=== PATIENT | male | born 1980 | race Caucasian/White ===

== ENCOUNTER 2018-07-07 19:25 | Emergency (ER) | payer MEDICAID ==
[~2018-07-07] VITALS: Ht 172.7 cm; Wt 125.0 kg
[2018-07-07] MEDS ORDERED: METF-960 PO (19:49)
[2018-07-07] MEDS: LIDOCAINE HCL 2%/EPI 1:200,000/PF 20 ML VIAL INJ ONE (21:07)
[2018-07-07] MEDS: INSULIN REGULAR, HUMAN 100 UNITS/ML IVP ONE (21:12)
[2018-07-07 21:23] LABS: GLUCOSE,POINT OF CARE 359 MG/DL (70-110)
[2018-07-07] MEDS: SODIUM CHLORIDE 0.9% 1,000 ML IV ONE (21:28)
[2018-07-07] MEDS: SULFAMETHOX/TRIMETH DS 800-160 MG/TABLET PO ONE (21:28)
[2018-07-07] MEDS: CEPHALEXIN MONOHYDRATE 500 MG CAPSULE PO ONE (21:28)
[2018-07-07] MEDS: HYDROCODONE/ACETAMINOPHEN 5-325 MG TABLET PO ONE (21:29)
[2018-07-07 22:23] LABS: GLUCOSE,POINT OF CARE 277 MG/DL (70-110)
[2018-07-07 22:40] VITALS: BP 145/85
== END 2018-07-07 22:41 | disposition home or self-care (01) ==
LOC: EMS 19:32
DX: L02.811 Cutaneous abscess of head [any part, except face] (principal); E11.65 Type 2 diabetes mellitus with hyperglycemia; Z79.84 Long term (current) use of oral hypoglycemic drugs
CPT/HCPCS: 10060; 82962; 96361; 96374; 99284; J1815; J2001; J7030